=== PATIENT | female | born 1985 | race Caucasian/White ===

== ENCOUNTER 2023-04-22 11:55 | Emergency (ER) | payer BC ==
[2023-04-22] MEDS ORDERED: hydrOXYzine HCl 25 MG Tab PO ONE (12:25)
== END 2023-04-22 12:58 | disposition home or self-care (01) ==
LOC: VM.ED 11:55
DX: F41.0 Panic disorder [episodic paroxysmal anxiety] (principal)
CPT/HCPCS: 99283; A9270